=== PATIENT | female | born 1955 | race Caucasian/White ===

== ENCOUNTER 2019-06-02 06:49 | Day surgery (SDC) | payer MEDICARE, OTHER ==
[~2019-06-02 06:49] MED LIST: DORZOLAMIDE HCL 2%/TIMOLOL MALEAT 0.5% OPH SOLN 10 ML OD PRN; KETOROLAC TROMETHAMINE 0.45% 4 DROP/0.4 ML DROPERETTE OD PRN
[2019-06-02] MEDS: BESIFLOXACIN HCL 0.6% OPH SUSP 5 ML BOTTLE OD PRN ×3 (07:01→08:11)
[2019-06-02] MEDS: TROPICAMIDE 1% OPH SOLN 15 ML OD PRN ×3 (07:01→07:25)
[2019-06-02] MEDS: TETRACAINE HCL 0.5% OPH SOLN 4 ML OD PRN ×3 (07:01→07:48)
[2019-06-02] MEDS: CYCLOPENTOLATE 0.2%/PHENYLEPHRINE 1% OPH SOLN 2 ML OD PRN ×3 (07:01→07:25)
[2019-06-02] MEDS ORDERED: ONDANSETRON HCL INJ/PF 4 MG/2 ML SDV ONE (07:03)
[2019-06-02] MEDS ORDERED: FENTANYL CITRATE INJ/PF 100 MCG/2 ML AMPUL ONE (07:04)
[2019-06-02] MEDS ORDERED: MIDAZOLAM 2 MG/2 ML INJ ONE (07:04)
[2019-06-02] MEDS ORDERED: TOBRAMYCIN SULFATE/DEXAMETH OPH OINTMENT 3.5 GM ONE (07:20)
[2019-06-02] MEDS ORDERED: EPINEPHRINE INJ/PF 1 MG/1 ML AMPULE ONE (07:20)
[2019-06-02] MEDS ORDERED: LIDOCAINE 1% INJ-PF (10 MG/ML) 30 ML SDV ONE (07:20)
[2019-06-02] MEDS ORDERED: CHONDR SU A NA/HYALUR INTRAOC KIT (SURGICARE) ONE (07:20)
== END 2019-06-02 08:51 | disposition home or self-care (01) ==
LOC: SC 06:49
PROVIDERS: ATTEND Ophthalmology
DX: H25.11 Age-related nuclear cataract, right eye (principal); I10 Essential (primary) hypertension; Z79.899 Other long term (current) drug therapy
CPT/HCPCS: 66984; 00142; V2632; J2250; J3490 ×4; J0171; J3010; J2405; 142

== ENCOUNTER 2019-06-23 11:01 | Day surgery (SDC) | payer MEDICARE, OTHER ==
[~2019-06-23 11:01] MED LIST changes: -DORZOLAMIDE HCL 2%/TIMOLOL MALEAT 0.5% OPH SOLN 10 ML OD PRN; -KETOROLAC TROMETHAMINE 0.45% 4 DROP/0.4 ML DROPERETTE OD PRN; +KETOROLAC TROMETHAMINE 0.45% 4 DROP/0.4 ML DROPERETTE OS PRN
[2019-06-23] MEDS: CYCLOPENTOLATE 0.2%/PHENYLEPHRINE 1% OPH SOLN 2 ML OS PRN ×3 (11:52→12:20)
[2019-06-23] MEDS: TETRACAINE HCL 0.5% OPH SOLN 4 ML OS PRN ×4 (11:52→13:25)
[2019-06-23] MEDS: BESIFLOXACIN HCL 0.6% OPH SUSP 5 ML BOTTLE OS PRN ×4 (11:52→13:42)
[2019-06-23] MEDS: TROPICAMIDE 1% OPH SOLN 15 ML OS PRN ×3 (11:52→12:20)
[2019-06-23] MEDS ORDERED: FENTANYL CITRATE INJ/PF 100 MCG/2 ML AMPUL ONE (12:29)
[2019-06-23] MEDS ORDERED: MIDAZOLAM 2 MG/2 ML INJ ONE ×2 (12:29→13:10)
[2019-06-23] MEDS: LIDOCAINE 1% INJ-PF (10 MG/ML) 30 ML SDV ONE ×2 (12:42→13:31)
[2019-06-23] MEDS: EPINEPHRINE INJ/PF 1 MG/1 ML AMPULE ONE ×2 (12:42→13:31)
[2019-06-23] MEDS: CHONDR SU A NA/HYALUR INTRAOC KIT (SURGICARE) ONE ×2 (12:42→13:31)
[2019-06-23] MEDS: DORZOLAMIDE HCL 2%/TIMOLOL MALEAT 0.5% OPH SOLN 10 ML OS PRN ×2 (12:43→13:42)
[2019-06-23] MEDS: TOBRAMYCIN SULFATE/DEXAMETH OPH OINTMENT 3.5 GM ONE ×2 (12:43→13:42)
[2019-06-23] MEDS ORDERED: EPINEPHRINE INJ/PF 1 MG/1 ML AMPULE ONE (13:17)
[2019-06-23] MEDS ORDERED: POVIDONE-IODINE 5% OPH PREP SOLN 30 ML ONE (13:17)
== END 2019-06-23 14:15 | disposition home or self-care (01) ==
LOC: SC 11:01
PROVIDERS: ATTEND Ophthalmology
DX: H25.12 Age-related nuclear cataract, left eye (principal); I10 Essential (primary) hypertension; Z79.899 Other long term (current) drug therapy
CPT/HCPCS: 66984; 00142; V2632; J2250; J3490 ×4; A9270; J0171; J3010; 142